=== PATIENT | female | born 1955 | race Caucasian/White ===

== ENCOUNTER 2023-09-17 21:13 | Inpatient (IN) | payer MEDICARE ==
[~2023-09-17] VITALS: Ht 175.3 cm; Wt 115.3 kg
[2023-09-18] VITALS (14 sets, daily range): BP systolic 104–123; BP diastolic 65–83; PULSE 65–88; TEMP 98.2–98.8
[2023-09-18] MEDS ORDERED: PRAVACHOL10 MG PO (00:09)
[2023-09-18] MEDS ORDERED: NORVASC 5MG5 MG/TAB PO (00:10)
[2023-09-18] MEDS ORDERED: TOPROL XL200 MG PO (00:10)
[2023-09-18] MEDS ORDERED: COZAAR100 MG PO (00:11)
[2023-09-18] MEDS ORDERED: HCTZ 25MG TAB25 MG PO (00:12)
[2023-09-18] MEDS ORDERED: SYNTHROID 0.0.025 MG PO (00:12)
[2023-09-18] MEDS ORDERED: OZEMPIC0.25 MG/02 SQ (00:13)
--- NOTE | 2023-09-18 00:43 | NUR ---
deandre arrived via EMS from [place], alert and oriented x4. denies chest pain and shortness of breath. reports intermittent pain in LLQ rated 6/10, denies interventions at this time. IV in LAC is patent, site is [facility]. ambulates with steady gait. pt has no further needs, questions, or concerns at this time. call light within reach. will continue to monitor.
[2023-09-18] MEDS ORDERED: LR 1,000 ML IV SCH (00:45)
[2023-09-18] MEDS ORDERED: Ondansetron 4 MG/2 ML VIAL IV PRN (00:45)
[2023-09-18] MEDS ORDERED: hydrALAZINE 20 MG/ML 1 ML VIAL IV PRN (01:00)
[2023-09-18] MEDS ORDERED: Acetaminophen 325 MG TAB PO PRN (01:00)
[2023-09-18] MEDS ORDERED: Insulin Lispro (HumaLOG) SQ SCH (08:00)
[2023-09-18] MEDS ORDERED: Pantoprazole 40 MG in NS 10 ML IV SCH (09:00)
--- NOTE | 2023-09-18 09:20 | NUR ---
patient alert and oriented x4. patient at bedside. patient on room air. npo at this time. patient reports discomfort 5/10 to abdomen but doesn't want pain medication at this time. call light within reach. bed at lowest position.
--- NOTE | 2023-09-18 09:55 | NUR ---
Initial visit; Patient thanked Entry Rep for looking in on her. Her also present. Roseline said all is going well and appreciates Entry Rep keeping her in her prayers. Entry Rep wished her well.
--- NOTE | 2023-09-18 11:36 | NUR ---
insulation worker met with pt to discuss discharge planning. She reports to live with Shaun in [place]. SW asked about listed , [facility] and was told this is "[facility]aun" in the room. Pt sees Dr. Painter in [place] and obtains medicatons from [facility] with no difficulties. She is independent with ADLS and uses no DME. She does not have a DPOA-HC and accepted a copy. Pt states she has Medicare A and B and [facility] as supplemental. DAMION Colindres informed appropriate team that pt is NOT a self pay. Discharge Plan: home
[2023-09-18 12:40] LABS: BASO % 0.3 % (0.0-2.0); EOS # 0.1 K/mm3 (0.0-0.7); EOS % 1.9 % (0.0-4.0); GRAN # 4.8 K/mm3 (1.4-6.5); GRAN % 68.7 % (42.2-75.2); HEMATOCRIT 37.4 % (37.0-47.0); HEMOGLOBIN 12.7 g/dl (12.5-16.0); LYMPH # 1.5 K/mm3 (1.2-3.4); LYMPH % 21.2 % (20.0-51.0); MEAN CELL VOLUME 96 fl (80.0-100.0); MEAN CORPUSCULAR HEMOGLOBIN 33 pg (27-31); MEAN CORPUSCULAR HGB CONC 34 g/dl (33.0-37.0); MEAN PLATELET VOLUME 11.6 fl (7.4-10.4); MONO # 0.5 K/mm3 (0.1-0.6); MONO % 7.5 % (1.7-9.3); PLATELET COUNT 191 K/mm3 (130-400); RED BLOOD COUNT 3.89 M/mm3 (4.10-5.30); REDCELL DISTRIBUTION WIDTH-CV 13.7 % (11.5-14.5)
[2023-09-18 12:56] LABS: ALBUMIN 3.2 g/dL (3.4-4.8); BILIRUBIN,TOTAL 2.1 mg/dL (0.2-1.2); CALCIUM 9.5 mg/dL (8.4-10.2); CREATININE, serum 0.8 mg/dL (0.57-1.11); POTASSIUM 3.5 mEq/L (3.5-4.5); TOTAL PROTEIN 6.6 g/dl (6.2-8.1)
--- NOTE | 2023-09-18 22:50 | NUR ---
Patient lying in bed, alert and oriented x4. denies chest pain and shortness of breath. reports pain in LLQ ABD with certain movement and refuses pain relief intervention at this time. IV in LAC is patent, site is [facility]. pt refused offered SCDs at this time, ambulating indp in room with steady gait. pt has no further needs, questions, or concerns at this time. call light within reach. will continue to monitor.
[2023-09-19] VITALS (11 sets, daily range): BP systolic 124–161; BP diastolic 73–89; PULSE 69–75; TEMP 98–98.5
[2023-09-19 06:24] LABS: BASO % 0.2 % (0.0-2.0); EOS # 0.1 K/mm3 (0.0-0.7); GRAN # 2.8 K/mm3 (1.4-6.5); GRAN % 59.4 % (42.2-75.2); HEMOGLOBIN 11.8 g/dl (12.5-16.0); LYMPH # 1.4 K/mm3 (1.2-3.4); LYMPH % 28.9 % (20.0-51.0); MEAN CELL VOLUME 96 fl (80.0-100.0); MEAN CORPUSCULAR HEMOGLOBIN 32 pg (27-31); MEAN CORPUSCULAR HGB CONC 34 g/dl (33.0-37.0); MEAN PLATELET VOLUME 11.5 fl (7.4-10.4); MONO # 0.4 K/mm3 (0.1-0.6); MONO % 8.1 % (1.7-9.3); PLATELET COUNT 175 K/mm3 (130-400); RED BLOOD COUNT 3.64 M/mm3 (4.10-5.30); REDCELL DISTRIBUTION WIDTH-CV 13.2 % (11.5-14.5)
[2023-09-19 06:26] LABS: HEMATOCRIT 34.9 % (37.0-47.0)
[2023-09-19 06:39] LABS: CALCIUM 9.2 mg/dL (8.4-10.2); CREATININE, serum 0.77 mg/dL (0.57-1.11); POTASSIUM 3.4 mEq/L (3.5-4.5)
--- NOTE | 2023-09-19 08:50 | NUR ---
PATIENT ALERT AND ORIENTED X4. PATIENT REPORTS DISCOMFORT TO LLQ AND WORSENS WITH WALKING OR BRISK MOVEMENT. PATIENT FLUIDS RUNNING PER MAR. PATIENT ON ROOM AIR. CALL LIGHT WITHIN REACH.
[2023-09-19] MEDS ORDERED: Dextrose (Glucose) 15 GM (4 x 3.75 GM) Chewable TABLET PACK PO PRN (10:45)
[2023-09-19] MEDS ORDERED: Dextrose 50% Water 25 GM/50 ML SYRINGE IV PRN (10:45)
[2023-09-19] MEDS ORDERED: Glucagon 1 MG VIAL IM PRN (10:45)
[2023-09-19] MEDS ORDERED: LR 1,000 ML IV SCH (12:00)
[2023-09-19 19:43] LABS: PH 5.5 (5.0-8.5); URINE APPEARANCE TURBID (CLEAR/HAZY); URINE BLOOD NEGATIVE (NEGATIVE); URINE COLOR Dark Yellow (YELLOW); URINE GLUCOSE NEGATIVE (NEGATIVE); URINE KETONE 3+ (NEGATIVE); URINE NITRATE NEGATIVE (NEGATIVE); URINE PROTEIN(semi-quant) 1+ (NEGATIVE); URINE UROBILINOGEN 0.2 E.U/dL (0.2-1.0)
[2023-09-19 20:00] LABS: COLLECTION METHOD CLEAN CATCH
--- NOTE | 2023-09-19 21:00 | NUR ---
Pt sitting up in bed watching tv upon this nurse's entry to room. A&Ox4. RR even and unlabored. NAD present. Shift assessment performed. HRRR. LSCTA. ABD is obese and soft. Not TTP. PIV to LAC is patent w/ abx zosyn infusing. Pt denies N/V/D or pain. Pt is tolerating clear liquids as well and is hopeful to advance diet w/o issues to low residue. Pt denies any needs at this time. Call light in reach. Care ongoing.
[2023-09-20] VITALS (12 sets, daily range): BP systolic 148–169; BP diastolic 47–100; PULSE 68–80; TEMP 98.1–98.4
[2023-09-20 07:25] LABS: CALCIUM 9.4 mg/dL (8.4-10.2); CREATININE, serum 0.72 mg/dL (0.57-1.11); POTASSIUM 3.4 mEq/L (3.5-4.5)
[2023-09-20 07:33] LABS: BASO % 0.2 % (0.0-2.0); EOS # 0.2 K/mm3 (0.0-0.7); EOS % 3.3 % (0.0-4.0); GRAN # 2.5 K/mm3 (1.4-6.5); GRAN % 54.8 % (42.2-75.2); HEMATOCRIT 37.9 % (37.0-47.0); HEMOGLOBIN 12.6 g/dl (12.5-16.0); LYMPH # 1.5 K/mm3 (1.2-3.4); LYMPH % 33.8 % (20.0-51.0); MEAN CELL VOLUME 96 fl (80.0-100.0); MEAN CORPUSCULAR HEMOGLOBIN 32 pg (27-31); MEAN CORPUSCULAR HGB CONC 33 g/dl (33.0-37.0); MEAN PLATELET VOLUME 11.1 fl (7.4-10.4); MONO # 0.4 K/mm3 (0.1-0.6); MONO % 7.7 % (1.7-9.3); PLATELET COUNT 208 K/mm3 (130-400); RED BLOOD COUNT 3.97 M/mm3 (4.10-5.30)
--- NOTE | 2023-09-20 08:19 | NUR ---
Patient alert and oriented x4. on room air. patient reports headache 05/05 but doesn't want medication for it. patient sitting in bed resting. denies any other need at this time. shift assessment completed. call light within reach. bed at lowest position.
[2023-09-20] MEDS ORDERED: Amoxicillin/Clavulanate K+ 875/125 MG TAB PO SCH (17:00)
--- NOTE | 2023-09-20 20:20 | NUR ---
Pt sitting up in bed watching tv upon this nurse's entry to room. A&Ox4. Pleasant demeanor. Shift assessment performed. RR even and unlabored. NAD present. PIV to LAC remains saline locked. ISIAH wrap placed for comfort. HRRR. LSCTA. ABD is obese and soft. Bowel sounds present x4. Pt denies N/V/D or pain. Pt reports that she is tolerating the low residue diet well w/o complications. Pt denies any needs or concerns. Call light in reach. Care ongoing.
[2023-09-21] VITALS (7 sets, daily range): BP systolic 140–163; BP diastolic 88–97; PULSE 69–90; TEMP 97.9–98.6
[2023-09-21 07:06] LABS: BASO % 0.2 % (0.0-2.0); EOS # 0.2 K/mm3 (0.0-0.7); EOS % 3.1 % (0.0-4.0); GRAN # 2.5 K/mm3 (1.4-6.5); GRAN % 52.9 % (42.2-75.2); HEMATOCRIT 38.7 % (37.0-47.0); HEMOGLOBIN 13.2 g/dl (12.5-16.0); LYMPH # 1.7 K/mm3 (1.2-3.4); MEAN CELL VOLUME 94 fl (80.0-100.0); MEAN CORPUSCULAR HEMOGLOBIN 32 pg (27-31); MEAN CORPUSCULAR HGB CONC 34 g/dl (33.0-37.0); MONO # 0.4 K/mm3 (0.1-0.6); MONO % 8.6 % (1.7-9.3); PLATELET COUNT 214 K/mm3 (130-400); RED BLOOD COUNT 4.12 M/mm3 (4.10-5.30); REDCELL DISTRIBUTION WIDTH-CV 12.9 % (11.5-14.5)
[2023-09-21 07:07] LABS: CALCIUM 8.9 mg/dL (8.4-10.2); CREATININE, serum 0.74 mg/dL (0.57-1.11); POTASSIUM 3.7 mEq/L (3.5-4.5)
--- NOTE | 2023-09-21 08:15 | NUR ---
PATIENT ALERT AND ORIENTED X4. PATIENT DENIES PAIN AT THIS TIME. PATIENT REPORTS TOLERATING FOOD WELL AND PO ANTIBIOTIC. PATIENT EATING BREAKFAST THIS MORNING.PATIENT ON ROOM AIR, REPORTS RUNNY SEMI-FORM STOOL LAST NIGHT. PATIENT DENIES CONCERNS AT THIS TIME. PATIENT AT BEDSIDE. CALL LIGHT WITHIN REACH. BED AT LOWEST POSITION.
[2023-09-21] MEDS ORDERED: AMOXICILLIN 8751 TAB PO (10:06)
[2023-09-21] MEDS ORDERED: ZOFRAN ODT4 MG PO (10:12)
--- NOTE | 2023-09-21 11:50 | NUR ---
patient discharge instructions given. patient verbalized understanding. patient IV removed. patient instructed to call when ready to be transported down stairs to hospital entrance by PCT.
--- NOTE | 2023-09-21 12:13 | NUR ---
patient escorted out of unit by this nurse. patient accompanied by .
--- NOTE | 2023-09-21 14:31 | NUR ---
Ingot Car Operator met with patient to present and review IM. Patient verbalized understanding and provided signature. SW placed form in chart and provided copy to patient.
== END 2023-09-21 12:14 | disposition home or self-care (01) | DRG 392 ==
LOC: SURG 21:13 → MEDICAL 23:59
PROVIDERS: Internal Medicine; ADMIT Internal Medicine
DX: K57.20 Diverticulitis of large intestine with perforation and abscess without bleeding (principal); I10 Essential (primary) hypertension; E03.9 Hypothyroidism, unspecified; R73.03 Prediabetes; E78.00 Pure hypercholesterolemia, unspecified; E86.0 Dehydration; K59.00 Constipation, unspecified; Z87.891 Personal history of nicotine dependence; Z90.710 Acquired absence of both cervix and uterus; Z79.890 Hormone replacement therapy; Z79.899 Other long term (current) drug therapy; Z23 Encounter for immunization
CPT/HCPCS: C9113; J2543; J7120